=== PATIENT | female | born 1955 ===

== ENCOUNTER 2020-11-25 11:40 | Inpatient (IN) | payer SELFPAY ==
[~2020-11-25] VITALS: Ht 172.7 cm; Wt 90.3 kg
[2020-11-25 12:49] LABS: Hematocrit 38.2 % (33.0-51.0); Hemoglobin 12.8 g/dL (11.5-16.0); Mean Corpuscular HGB 32.1 pg (26.0-34.0); Mean Corpuscular HGB Conc 33.5 g/dL (31.5-36.5); Mean Corpuscular Volume 96 fL (80-100); Mean Platelet Volume 10.6 fL (9.1-12.4); Platelet Count 155 K/mm3 (150-400); RDW Coefficient Variation 13.6 % (11.7-14.2); RDW Standard Deviation 47.9 fL (35.1-46.3); Red Blood Cell Count 3.99 M/mm3 (3.80-5.20); White Blood Cell Count 6.86 K/mm3 (4.00-11.30)
[2020-11-25 13:04] LABS: Albumin, Blood 3.3 g/dL (3.4-5.0); Albumin/Globulin Ratio 0.8 (0.8-1.8); Bilirubin, Total 0.5 mg/dL (0.1-1.0); Bun/Creatinine Ratio 12.1 (12.0-20.0); Creatinine, Blood 1.16 mg/dL (0.40-1.00); Globulin, Blood 3.9 g/dL (2.2-4.0); Total Protein, Blood 7.2 g/dL (6.4-8.2)
[2020-11-25 13:13] LABS: BAND PERCENT MAN 32 % (0-8); BASOPHILS ABSOLUTE MAN 0.06 K/mm3 (0.00-0.23); BASOPHILS PERCENT MAN 1 % (0-2); EOSINOPHILS PERCENT MAN 0 % (0-6); LYMPHOCYTES ABSOLUTE MAN 0.61 K/mm3 (0.84-5.20); LYMPHOCYTES PERCENT MAN 9 % (21-46); MONOCYTES ABSOLUTE MAN 0.34 K/mm3 (0.16-1.47); MONOCYTES PERCENT MAN 5 % (4-13); NEUTROPHILS ABSOLUTE MAN 5.83 K/mm3 (1.96-9.15); SEG NEUTROPHILS PERCENT MAN 53 % (41-73); TOTAL CELLS COUNTED 100
[2020-11-25 13:18] LABS: Source, Urine Catheter
[2020-11-25 13:21] LABS: Appearance, Urine Clear (Clear); Bilirubin, Urine Neg (Neg); Blood, Urine 4+ (Neg); Color, Urine Yellow (P-Yellow); Glucose Qualitative, Urine Neg (Neg); Ketones, Urine Neg (Neg); Leukocyte Esterase, Urine 1+ (Neg); Nitrite, Urine Pos (Neg); Protein, Urine 3+ (Neg); Urobilinogen, Urine NORM (Normal)
[2020-11-25 13:44] LABS: U Amphetamine Screen DETECTED; U Barbituate Screen Not Detected; U Benzodiazapine Screen Not Detected; U Buprenorphine Screen Not Detected; U Cannabinoids Screen Not Detected; U Cocaine Screen Not Detected; U Methadone Screen Not Detected; U Methamphetamine Screen DETECTED; U Opiates Screen Not Detected; U Oxycodone Screen Not Detected; U Phencyclidine Screen Not Detected; U Propoxyphene Screen Not Detected
[2020-11-25 13:48] LABS: Bacteria Many /hpf; Squamous Epithelial Cells Few /hpf (Few)
--- NOTE | 2020-11-25 16:50 | NUR ---
RECIEVED REPORT FROM BALTA GARCIA RN. PATIENT TO TRANSPORT TO ROOM 329.
--- NOTE | 2020-11-25 17:44 | NUR ---
PATIENT ARRIVED TO THE FLOOR AT 1700. DENIES HAVING ANY OTHER MEDICAL CONDITIONS. VERY LETHARGIC AND OBTAINING ANY INFORMATION VIA PATIENT DIFFICULT AND UNRELIABLE. PATIENT STATES SHE DOES NOT USE RECREATIONAL DRUGS. WAS UNABLE TO GET O2 SATS ABOVE 90% VIA NC SO PLACED PATIENT ON OXYMIZER AND SHE SEEMS TO BE DOING WELL ON ONLY 2L O2. INCONT AT THIS TIME. H&P AND ADMISSION ASSESSMENT COMPLETED TO THE BEST OF MY ABILITY WITHOUT THE ASSISTANCE OF THE PATIENT.
--- NOTE | 2020-11-25 19:45 | NUR ---
ASSUMED CARE RECEIVED REPORT FROM DEANDRA DEL RIO. PT'S O2 SATS NOTED TO BE 87-88% ON 12L OXYMIZER. 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 PT UNWILLING TO PRONE SELF OR TO LAY ON SIDE, EXPLAINED TO PT RISKS VERSUS BENEFITS. 02 INCREASED TO 15L/OXYMIZER, O2 SATS CONTINUING TO RANGE FROM 84-87%. RT ALSO NOTIFIED OF PT'S CONDITION, PT PLACED ON NON-REBREATHER MASK, ON 15L IN ADDITION TO 15L/OXYMIZER. O2 SATS BETWEEN 88-90%. PT HYPOTENSIVE, AROUSES BRIEFLY TO VERBAL STIMULI, BUT QUICKLY FALLS BACK ASLEEP. WILL NOTIFY PROVIDER OF PT CONDITION. GUEST SERVICES REPRESENTATIVE ALSO NOTIFIED.
--- NOTE | 2020-11-25 20:40 | NUR ---
NOTIFIED DR. HENDRIX OF PT'S INCREASED O2 NEEDS, CURRENTLY ON 15L/OXYMIZER AND 15L/NON-REBREATHER MASK, O2 SATS MAINTAINING 84-87%. NOTIFIED THAT RT IS PLACING PT ON AIRVO. NO NEW ORDERS RECEIVED AT THIS TIME, WILL CONTINUE TO KEEP INFORMED OF PT CONDITION.
--- NOTE | 2020-11-25 20:50 | NUR ---
PT O2 SATS 84-86% ON 15L/OXYMIZER AND NRB MASK. RAPID RESPONSE WAS CALLED.
--- NOTE | 2020-11-25 21:30 | NUR ---
THIS RN SPOKE TO DR. HENDRIX REGARDING PT'S BP S/P 25OML BOLUS OF NS. ORDERS RECEIVED. CONTINUE TO MONITOR PT CONDITION AND NOTIFY PROVIDER OF CHANGES.
--- NOTE | 2020-11-25 21:50 | NUR ---
NOTIFIED DR. HENDRIX OF PT'S RECENT BP OF . ORDERS RECEIVED.
--- NOTE | 2020-11-25 21:50 | NUR ---
SPOKE TO DR. HENDRIX REGARDING PT'S CURRENT BP OF 84/51. ORDERS RECEIVED TO INFUSE 500ML BOLUS OF NS. NO OTHER ORDERS RECEIVED AT THIS TIME. CONTINUE TO MONITOR PT CONDITION.
--- NOTE | 2020-11-25 23:00 | NUR ---
THIS RN CALLED ON [facility] BY JESSICA PALM GATHERER. NOTIFIED OF ORDERS PER DR. HENDRIX TO TRANSFER PT TO PCU. AWAITING ROOM ASSIGNMENT.
--- NOTE | 2020-11-26 01:30 | NUR ---
REPORT CALLED TO BONGINVOICE CLERK. PT TRANSPORTED TO PCU VIA HOSPITAL BED, CURRENTLY ON BIPAP. ALL BELONGINGS SENT WITH PT.
[2020-11-26 04:26] LABS: Hematocrit 43.2 % (33.0-51.0); Mean Corpuscular HGB 32.1 pg (26.0-34.0); Mean Corpuscular HGB Conc 32.4 g/dL (31.5-36.5); Mean Corpuscular Volume 99 fL (80-100); Mean Platelet Volume 10.2 fL (9.1-12.4); Platelet Count 148 K/mm3 (150-400); RDW Coefficient Variation 13.6 % (11.7-14.2); Red Blood Cell Count 4.36 M/mm3 (3.80-5.20)
[2020-11-26 04:52] LABS: Alanine Aminotransfer (ALT/SGP 49 U/L (12-78); Albumin, Blood 2.7 g/dL (3.4-5.0); Albumin/Globulin Ratio 0.7 (0.8-1.8); Alk Phos 57 U/L (50-136); Anion Gap 8 mmol/L (6-16); Aspartate Aminotrans (AST/SGOT 103 U/L (12-37); Bilirubin, Total 0.5 mg/dL (0.1-1.0); Blood Urea Nitrogen 12 mg/dL (8-24); Bun/Creatinine Ratio 13.9 (12.0-20.0); CO2, Blood 20 mmol/L (21-32); Calcium, Blood 7.3 mg/dL (8.5-10.1); Chloride, Blood 108 mmol/L (98-108); Creatinine, Blood 0.86 mg/dL (0.40-1.00); Glomerular Filtration Rate >60 (60-); Glucose, Blood 135 mg/dL (70-99); Magnesium, Blood 2.2 mg/dL (1.6-2.4); Potassium, Blood 3.6 mmol/L (3.5-5.5); Sodium, Blood 136 mmol/L (136-145); Total Protein, Blood 6.7 g/dL (6.4-8.2)
[2020-11-26 05:59] LABS: BAND PERCENT MAN 30 % (0-8); BASOPHILS PERCENT MAN 0 % (0-2); EOSINOPHILS PERCENT MAN 0 % (0-6); LYMPHOCYTES ABSOLUTE MAN 0.98 K/mm3 (0.84-5.20); LYMPHOCYTES PERCENT MAN 7 % (21-46); METAMYELOCYTE ABSOLUTE MAN 0.14 K/mm3 (0.00-0.00); METAMYELOCYTE PERCENT MAN 1 % (0-0); MONOCYTES ABSOLUTE MAN 0.14 K/mm3 (0.16-1.47); MONOCYTES PERCENT MAN 1 % (4-13); NEUTROPHILS ABSOLUTE MAN 12.74 K/mm3 (1.96-9.15); SEG NEUTROPHILS PERCENT MAN 61 % (41-73); TOTAL CELLS COUNTED 100
--- NOTE | 2020-11-26 06:30 | NUR ---
shift summary pt rested most of night after being transferred from medical. alert, not oriented. pt is anxious at times, but maintains good sats on bipap - 14/7 100% fio2. tele nsr/sinus tach. bedrest, incontinent at times. no pain. vss. call light within reach, bed in lowest position. will continue to monitor.
--- NOTE | 2020-11-26 18:04 | NUR ---
SHIFT SUMMARY: PT A&OX3, AGITATED AT TIMES AND TALKS ABOUT HER RT FOREARM HURTING, STATING "IT IS FROM [facility]" AND REQUESTING A SOCK TO PROVIDE COMPRESSION. PT CONTINUES TACHYPNEIC, MAINTAINING O2 SATS ON BIPAP CURRENTLY SET TO 90% 05/11. SR CONTINUES ON MONITOR. REMDESIVIR INFUSION COMPLETED WITHOUT DIFFICULTY. PT TO AND FROM CT FOR PE STUDY. PT PROVIDED WITH BEDBATH, ATTENDS IN PLACE AND CHANGED NEEDED. PT PROVIDED WITH ORAL CARE AND REPOSITIONED NEEDED. WILL CONTINUE TO MONITOR AND TREAT ACCORDINGLY UNTIL CHANGE OF SHIFT.
--- NOTE | 2020-11-26 21:29 | NUR ---
CALLED DR. REES REGARDING PATIENT PULLING BIPAP OFF REPEATEDLY; ABOUT 3 TIMES IN A TWENTY MINUTE WINDOW; PATIENT REPORTS SHE CANNOT BREATHE; NO NEW ORDERS AT THIS TIME. WILL ATTEPT TO PLACE PATIENT ON HIGH FLOW NASAL CANNULA.
--- NOTE | 2020-11-26 21:45 | NUR ---
ASSUMED CARE OF PATIENT AT APPROXIMATELY 1900 FROM JE Mcnally RN. PATIENT ANXIOUS, IRRITABLE AND PULLING OFF BIPAP MULTIPLE TIMES; YELLING AT STAFF MEMBERS. PATIENT ANXIOUS ABOUT BIPAP; PULLS OFF AND REPORTS "I CANT BREATHE"; PATIENT DENIES PAIN, NUMBNESS, TINGLING, DIZZINESS OR NAUSEA. SR ON TELE; OXYGEN SATURATION ABOVE 90% ON BIPAP 14/8 90% FIO2. PIV S/L.
[2020-11-27 04:15] LABS: Hematocrit 43.6 % (33.0-51.0); Hemoglobin 14.3 g/dL (11.5-16.0); Mean Corpuscular HGB Conc 32.8 g/dL (31.5-36.5); Mean Corpuscular Volume 98 fL (80-100); Mean Platelet Volume 10.2 fL (9.1-12.4); Platelet Count 175 K/mm3 (150-400); RDW Coefficient Variation 13.6 % (11.7-14.2); RDW Standard Deviation 49.5 fL (35.1-46.3); Red Blood Cell Count 4.47 M/mm3 (3.80-5.20); White Blood Cell Count 10.67 K/mm3 (4.00-11.30)
[2020-11-27 04:37] LABS: Anion Gap 9 mmol/L (6-16); Blood Urea Nitrogen 13 mg/dL (8-24); Bun/Creatinine Ratio 18.2 (12.0-20.0); CO2, Blood 22 mmol/L (21-32); Calcium, Blood 7.9 mg/dL (8.5-10.1); Chloride, Blood 107 mmol/L (98-108); Creatinine, Blood 0.72 mg/dL (0.40-1.00); Glomerular Filtration Rate >60 (60-); Glucose, Blood 103 mg/dL (70-99); Potassium, Blood 4.6 mmol/L (3.5-5.5); Sodium, Blood 138 mmol/L (136-145)
--- NOTE | 2020-11-27 05:20 | NUR ---
PATIENT PULLED BIPAP OFF AND REPORTS SHE CANNOT BREATHE AND WOULD LIKE A BREAK; AT LEAST FOR A MINUTE; ATIVAN GIVEN PER ORDER THAT WAS PREVIOUSLY HELPING BUT SEEMS TO HAVE NOT EFFECT NOW. PATIENT OXYGEN SATURATION DROPPED TO 79 PERCENT. PATIENT STATES SHE IS READY TO GO HOME.
--- NOTE | 2020-11-27 05:32 | NUR ---
DR. REES CALLED BY LICENSED PSYCHIATRIC TECHNICIAN DAN DUE TO PATIENT CONTINUOUSLY PULLING BIPAP OFF; PLACED ON HUMIDIFIED HF NC AND PATIENT STILL PULLING OFF OXYGEN STATING SHE JUST WANTS A BREAK FOR A FEW MINUTES EVEN AFTER BEING EDUCATED REPEATEDLY ABOUT DESATING.
--- NOTE | 2020-11-27 06:01 | NUR ---
DR. REES BEDSIDE; ORDERS RECIEVED; PATIENT IN SOFT BILATERAL WRIST RESTRAINTS WHILE ON HUMIDIFIED HIGH FLOW NC; 500 CC NS AT 100ML/HR; STAT CHEST XRAY; AND LABS.
--- NOTE | 2020-11-27 06:33 | NUR ---
DR. REES CALLED TO STATE CHEST X-RAY LOOKS WORSE AND DR. AU CAN INTERPRET LATER. NO NEW ORDERS; UPDATED THAT PATIENT IS VERY AGITATED AND PULLING ON OXYGEN.
--- NOTE | 2020-11-27 18:48 | NUR ---
PT IN BILATERAL SOFT WRIST RESTRAINTS FROM 0700 TO 1533; PT GIVEN ORAL CARE Q4H; PT TITRATED DOWN TO 50L AND 50% ON HIGH FLOW NC; PT WAS INCONTINENT OF URINE SEVERAL TIMES; PT VERY LETHARGIC AND PASSES THE BEDSIDE SWALLOW SCREEN, AOX1; AIRBORNE ISOLATION PRECAUTIONS OBSERVED; PT REFUSED HENNESSY CATHETER INSERTION WHEN GIVEN THE OPTION; PT TOLERATED PO WHOLE PILLS SUCCESSFULLY; ARMBOARD PLACED TO FACILITATE IV ABX INFUSION; PT DENIES ADDITIONAL CONCERNS AT THIS TIME
--- NOTE | 2020-11-27 21:45 | NUR ---
ASSUMED CARE OF PATIENT AT APPROXIMATELY 1900 FROM DANIELLE Verma RN. PATIENT LETHARGIC; WAKES TO VERBAL STIMULUS; DOESNT WANT TO BE CHANGED WHEN INCONTINENT OF URINE; REFUSING CATHEHTER; CONFUSED. PATIENT DOESNT HAVE MUCH OF AN APPETITE BUT REPORTS SHE THRISTY; INCONTINENT OF LARGE AMOUNTS OF URINE. PATIENT DENIES PAIN, NUMBNESS, TINGLING, DIZZINESS OR NAUSEA. SR ON TELE; OXYGEN SATURATION ABOVE 90% ON HUMIDIFIED HF NC 50% FIO2; 50 LPM. PIV S/L.
[2020-11-28 05:06] LABS: Anion Gap 5 mmol/L (6-16); Blood Urea Nitrogen 16 mg/dL (8-24); Bun/Creatinine Ratio 23.8 (12.0-20.0); CO2, Blood 27 mmol/L (21-32); Chloride, Blood 104 mmol/L (98-108); Creatinine, Blood 0.67 mg/dL (0.40-1.00); Glomerular Filtration Rate >60 (60-); Glucose, Blood 165 mg/dL (70-99); Potassium, Blood 3.4 mmol/L (3.5-5.5); Sodium, Blood 136 mmol/L (136-145)
--- NOTE | 2020-11-28 06:29 | NUR ---
PATIENT SLEPT ABOUT EIGHT HOURS. PATIENT CALLED AND REPORTED SHE WANTS HER ROOMMATE AND SERVICE DOG IN
--- NOTE | 2020-11-28 13:56 | NUR ---
pt has pulled laboratory monitor, clothing, and IV completely off. Blood all over thept's arms, torso and chux pad, probably about 20 cc. Bilateral soft wrist restraints applied after order received from Dr. Noyola to prevent harm to self (pt has also demonstrated confusion and ability to remove airvo oxygen delivery), as well as to protect lines/tubes in use for pt care , treatment and safety.
--- NOTE | 2020-11-28 17:40 | NUR ---
PT ARRIVAL... PT ARRIVED ON UNIT VIA GURNEY FROM PCU. PT WAS PULLED FROM THE PCU BED TO THE ICU BED BY 4 STAFF. PT WAS AGITATED BY MOVING AND ATTEMPTED TO PULL ON HER IV LINES AND PULL THE AIRVO OFF. PT WAS RESTRAINED AND IV PRECEDEX WAS STARTED, PT'S VS STABLE AT THE TIME OF TRANSFER. L/S CLEAR AND DIM T/O. BT PRESENT AND VERY HYPOACTIVE, ABD IS SOFT AND NONTENDER TO PALP. NO EDEMA NOTED ON ASSESSMENT. PT WAS UNABLE TO FOLLOW DIRECTIONS OR OPEN HER EYES TO COMMAND BUT WAS ABLE TO STATE HER NAME AND . THE PRECEDEX WAS TITRATED UP FROM 0.4MCG TO 0.7MCG WITH THE PT'S VS BEING STABLE. WILL CONTINUE TO MONITOR.
--- NOTE | 2020-11-28 17:48 | NUR ---
SHIFT SUMMARY PT EXPERIENCED A LOT OF ANXIETY AND AGITATION THIS SHIFT. PT CONFUSED AND VERY UPSET THAT SHE IS FROM HER SERVICE DOG. PULLING AT 02 AND PULLED OUT HER IV. UNABLE TO BE CONSOLED AND DID NOT RESPOND WELL TO ANXIETY MEDICATION. PT ENDED UP RESTRAINED AND WAS GETTING OUT OF HER RESTRAINTS AND STILL PULLING ON HER O2. PT DROPS INTO THE LOW 80'S ON ROOM AIR. RESTRAINTS REPOSITIONED IN ORDER TO KEEP PATIENT FROM REMOVING THEM. PT TRANSFERRED TO ICU IN ORDER TO RECEIVE ADDITONAL SEDATION. REPORT CALLED TO ICU NURSE, PT BELONGINGS GATHERED, AND PT TRANSFERRED TO ICU.
--- NOTE | 2020-11-28 19:56 | NUR ---
SHIFT SUMMARY... AT APROX 1850 IT WAS NOTED THAT THE PT'S BP HAS DROPPED TO THE 70'S/40'S WITH MAPS IN THE 50'S. THIS RN ENTERED THE ROOM AND STOPPED THE PRECEDEX, REPORT WAS GIVEN AT THE BEDSIDE WITH ONCOMING RN, DR. GANDHI WAS CALLED AND AN ORDER FOR LEVOPHED WAS OBTAINED, ALSO AN ORDER TO RUN THE LEVOPHED IN A PERIPHREAL IV UNTIL A LINE COULD BE STARTED. PLAN IS TO USE THE LEVOPHED WHILE THE PT NEEDS THE PRECEDEX DRIP. REPORT GIVEN TO ONCOMING RN AT THE BEDSIDE.
--- NOTE | 2020-11-28 19:59 | NUR ---
ASSUMED CARE REPORT RECEIVED FROM INES LIRIANO. PT RESTING IN BED, PRECEDEX WAS INFUSING AT 0.7 MCG/KG/HR HAD TO PUT ON STANDBY DUE TO LOW BP. NEW ORDER RECEIVED FOR LEVOPHED, OK'D TO RUN THROUGH PIV UP TO 8 MCG/MIN. WITH PRECEDEX ON STANDBY, PT ABLE TO FOLLOW COMMANDS, DID NOT ANSWER ANY ORIENTATION QUESTIONS. AIRVO ON 50L/50% SPO2 >90%. PT DECLINED REQUEST TO INSERT HENNESSY, ATTENDS IN PLACE AT THIS TIME. PT STATES SHE IS HAVING BACK PAIN, REPOSITIONED WITH PILLOWS. PRECEDEX RESTARTED AT 2000 AT 0.5 MCG/KG/HR AND LEVO STARTED AT 4 MCG/MIN. HR 50-60'S SR ON MONITOR, SBP WITH MAP >65, SPO2 95%. NEW ORDER PLACED FOR PICC LINE, CURRENTLY HAS ONE PIV TO RUE.
--- NOTE | 2020-11-28 21:00 | NUR ---
NEW VERBAL ORDER FROM DR ALMAZAN TO GIVE 1L NS BOLUS WIDE OPEN AND PLACE LEVOPHED ON STANDBY DUE TO NOT HAVING CENTRAL LINE AT THIS TIME.
--- NOTE | 2020-11-28 22:00 | NUR ---
NEW PIV INSERT TO LUE. LEVOPHED RESTARTED AT 4 MCG/MIN TO MAINTAIN MAP >65.
[2020-11-29 03:41] LABS: Anion Gap 6 mmol/L (6-16); Blood Urea Nitrogen 20 mg/dL (8-24); Bun/Creatinine Ratio 27.7 (12.0-20.0); CO2, Blood 26 mmol/L (21-32); Calcium, Blood 7.4 mg/dL (8.5-10.1); Chloride, Blood 106 mmol/L (98-108); Creatinine, Blood 0.72 mg/dL (0.40-1.00); Glomerular Filtration Rate >60 (60-); Glucose, Blood 243 mg/dL (70-99); Potassium, Blood 3.3 mmol/L (3.5-5.5); Sodium, Blood 138 mmol/L (136-145)
--- NOTE | 2020-11-29 06:33 | NUR ---
SHIFT SUMMARY PT RESTING IN BED, PRECEDEX INFUSING AT 0.7 MCG/KG AND LEVOPHED AT 2 MCG/MIN. PT OCCASIONALLY YELLS OUT "HELP ME" EASILY REDIRECTED WHEN REMINDED SHE IS IN HOSPITAL. HELPS WITH TURNING FOR ATTENDS CHANGES. ORIENTED TO SELF ONLY, WILL FOLLOW COMMANDS. AIRVO ON T/O SHIFT, 50L 55% WITH SPO2 92%. BILATERAL SOFT WRIST RESTRAINTS REMAIN IN PLACE TO PREVENT PULLING OF LINES/AIRVO. LUNG DIMINISHED T/O, PT WITH OCCASIONAL NONPRODUCTIVE COUGH.
--- NOTE | 2020-11-29 07:45 | NUR ---
Received report from Ginger LIRIANO. Patient resting with precedex as sedation. She is on AirVo 50L 55% and sats low 90% unless moving drops into mid to high 80 and recovers well. Oral care done as she coughs up thick yellow flem. gave complete bed bath and linen change. Changed attends. She moans and occassionally opens eye, but does not follow commands or track. She has bilateral 20ga IV's in upper arms. Right 20ga IV infusingPrecedex at 0.7 mcg/kg/hr, Levophed at 2 mcg/min, and NS TKO. The left 20ga IV flushed and SL'd.
--- NOTE | 2020-11-29 11:00 | NUR ---
Patient continues to rest. No changes to Lebvophed or Precedex. She remains on AirVo 50L 50% and sats 94%. She awakened long enough to take PO med with sips of water.
--- NOTE | 2020-11-29 13:30 | NUR ---
Patient has belen awakening and yelling out for water. She tolerates sips. She is still very confused and is un able to follow conversation clearly and only follow simple commands occassionally. VSS. She remains on 50L 50% via AirVo and sats sats >90%. She is able to MAEW but weak. Placed her on bedpan without success, she still refuses wilson. Precedex remains at 0.7 mcg/kg/hr and NS TKO and Levophed at 2 mcg/min
--- NOTE | 2020-11-29 15:30 | NUR ---
Patient resting off and on and remains waking up and yelling for water. She remains comfused and only able to to simple command. She is still in bilateral soft wrist and when letting her out for brief periods , she immediately pulls and nasal adjunct. VSS, sats 96%.
--- NOTE | 2020-11-29 18:27 | NUR ---
Patoient incontinent to urine and 700 mls in. High Flow remains at 50L 55% sats >90%. Levophed SB and Precedex 0.7 mcg/kg/hr, NS TKO. Patient remains confused with a little comunication and follows very simple commands. VSS, SEE EMR. MAEW but weak. Linen changed.
--- NOTE | 2020-11-29 20:00 | NUR ---
REPORT RECEIVED-CARE ASSUMED. GTTS, VITALS & ASSESSMENT NOTED IN FLOWSHEET.
--- NOTE | 2020-11-29 23:40 | NUR ---
assess pt yelling out, "golf course!' OVER AND OVER AGAIN. ATTEMPT TO REOREINTATE PT. PT STATES SHE DOES NOT UNDERSTAND.PT WITH FEET OVERSIDE OF BED-LAYING SIDEWAYS WITH RESTRAINTS ON- REPOSITION PT. CONTINUE ON PRECEDEX GTT-NO CHANGE IN RATE.CONTINUE HIGH FLOW O2 WITH NO SETTING CHANGES- 55% @ 50 FLOW. CONTINUE ASSESSMENTS AND CARE.
[2020-11-30 03:52] LABS: Anion Gap 7 mmol/L (6-16); Blood Urea Nitrogen 25 mg/dL (8-24); CO2, Blood 23 mmol/L (21-32); Calcium, Blood 7.8 mg/dL (8.5-10.1); Chloride, Blood 108 mmol/L (98-108); Creatinine, Blood 0.74 mg/dL (0.40-1.00); Glomerular Filtration Rate >60 (60-); Glucose, Blood 213 mg/dL (70-99); Potassium, Blood 3.8 mmol/L (3.5-5.5); Sodium, Blood 138 mmol/L (136-145)
--- NOTE | 2020-11-30 06:03 | NUR ---
END OF SHIFT NOTE PT REMAINS ON PRECEDEX 0.7, LEVO @ 2 - SEE FLOWSHEET VITALS. HR SB OVERNIGHT 45-55. NO CHANGE IN RESPIRATORY-55% ON 50 L, PT DECREASED SATS WITH TURNS AND ACTIVITY. ATTENDS IN PLACE, PT INCONTINENT OF URINE OVERNIGHT, NO BM. PT RESTED OFF AND ON, AT TIMES YELLING OUT, RANDOM THINGS AND REMAINS CONFUSED. PT IS ABLE TO DRINK FLUIDS WHEN AWAKE. CONTINUE ASSESSMENT AND CARE TILL REPORT OFF TO DAYSHIFT RN.
--- NOTE | 2020-11-30 07:39 | NUR ---
Received report from Angeles LIRIANO. Patient is resting in bed and awakens for care with an occassional yelling out for water. She is on High Flow at 50ml 55% and sats 96%. She has attends in place for incontinence of urine and no stool in several days. MAEw but weak. She has bilateeral 20 ga IV's in uuper arms. 20ga IV in right arm is flushed and SL'd and the left arm 20ga is infusing precedex 0.7 mcg/kg/hr, NS TKO, Levophed at 2 mcg/min. She is in bilateral soft wrist restraints for her pulling at lines and O2.
--- NOTE | 2020-11-30 09:30 | NUR ---
Decreaed Precedex to 0.3 mcg/kg/hr. She continues to scream out and states she remembers nothing you stated 5 minuytes before. Gave bath and she had small stool brown and soft. Levophed at 2 mcg/min and systolic low 100's. high flow at 50L 55% and sats mid to high 90%. Moves all extremities. Got her up to chair with 1 person assist for stabilization.
--- NOTE | 2020-11-30 11:30 | NUR ---
She remains up in chair. She had another medium soft stool, changed linen abd cleaned her up. VSS. Reduced high flow to 50L 45% and sats still >95%. No real changes in neuro, constantly yelling out and does not know why when asked.
--- NOTE | 2020-11-30 13:30 | NUR ---
Remains up in chair. Had third stool and large loose brown, in attends. VSS, SeeEmr. Reduced high flow to 40L 40% and sats still >95%. placed Precedex on standby.
--- NOTE | 2020-11-30 15:30 | NUR ---
Place all IV's on standby and placed her on 6L via NC and sats remains >95%. She was put back in bed after another loose stool. Transferred well with 1 full assist.
--- NOTE | 2020-11-30 17:21 | NUR ---
Trialing patient on RA and sats 90-94%. She tolerated small amount of dinner. VSS, See EMR. She is now medical status and possible DC 1-2 days. MAEW just a little unstable with ambulation and could benifet from PT/OT.
--- NOTE | 2020-11-30 19:00 | NUR ---
REPORT RECEIVED-CARE ASSUMED. NO GTTS, ON RA. CONFUSED-YELLING OUT. ATTENDS IN PLACE. FULL ASSESSMENT - SEE FLOWSHEET. CONTINUE ASSESSMENTS AND CARE.
--- NOTE | 2020-11-30 21:29 | NUR ---
PT ASKING TO CALL MOM-ABLE TO GIVE NUMBER-DIALED AND PT TALKED ON PHONE WITH HER. PT ON RA-ABLE TO HELP TURN IN BED. CONTINUE CARE.
--- NOTE | 2020-12-01 00:10 | NUR ---
ASSESS PT MED/SURG NO TELE. VOIDING-LARGE AMTS-INCONTINENCE. YELLING OUT WHEN YOUR NOT IN THE ROOM. PT REAGAN LOZANO SHE IS AT [facility], ANSWERS QUESTION. PT ABLE TO EAT AND DRINK. REMAINS OF RA, RR 18-22, BS: CLEAR/DECREASED. CONTINUE ASSESSMENTS AND CARE.
--- NOTE | 2020-12-01 05:55 | NUR ---
END OF SHIFT NOTE PT REMAINS ON RA, VITALS STABLE OVERNIGHT-SEE FLOWSHEET. PT A&O, CONTINUES TO YELL OUT. PT CALLED HER MOM LAST NIGHT AND CHATED ON PHONE. PT ABLE TO EAT AND DRINK. VOIDING-LARGE AMOUNTS-INCONTINENCE. CONTINUE ASSESSMENTS AND CARE TILL REPORT OFF TO ONCOMING SHIFT RN.
--- NOTE | 2020-12-01 08:57 | NUR ---
CARE OF PT ASSUMED AT 0700. PT YELLS OUT " I WANNA GO HOME, CAN I GO HOME". PT ABLE TO FEED HERSELF BREAKFAST. PT KNOWS SHE IS AT [facility] AND THAT THE YEAR IS 2020. PT STATES SHE IS IN THE HOSPITAL FOR COVID. PT ABLE TO FOLLOW DIRECTIONS. PT WITH CHILD LIKE CONVERSATION. PT WITH SIMPLE SPEECH, HIGH PITCHED AT TIMES, POOR UNDERSTANDING. PT MIN ASSIST TO CHAIR W WALKER, PT WEAK. VSS. PT HAS NON-PRODUCTIVE COUGH. SATS 90-91% ON RA. PT DOES HAVE FINE FAINT CRACKLES TO BASES. PT TORE OFF DNR BAND THIS AM STATING SHE DID NOT WANT TO . WILL DISCUSS WITH .
--- NOTE | 2020-12-01 10:31 | NUR ---
DR LOPEZ IN TO SEE PT. FULL REPORT GIVEN. PT/OT TO BE ORDERED.
--- NOTE | 2020-12-01 13:38 | NUR ---
PT COMPLAINING OF RIGHT HAND PAIN (CHRONIC FROM OLD INJURY/SURGERY) 02/01. PT GIVEN TYLENOL. PT STATES TYLENOL DOESNT WORK. PHYSICAL THERAPY WORKED W PT THIS AFTERNOON AND FOUND THE PT TO BE WEAK AND NOT READY FOR DISCHARGE. PT CONTINUES TO REQUEST TO BE DISCHARGED HOME. ALTHOUGH PT IS ORIENTED TO SELF AND PLACE PT IS STILL EXIBITING SOME COGNITIVE DEFICITS. PT HAS POOR JUDGEMENT, POOR INSIGHT, POOR MEMORY. PT CALLS OUT REPEATIVELY "HELP" OR "I WANT TO GO HOME", OR A PHONE NUMBER. PT OCCASSIONALLY USES THE CALL LIGHT APPROPRIATELY.
[2020-12-01] MEDS ORDERED: CEFD300 PO (15:19)
[2020-12-01] MEDS ORDERED: DEXA2 PO (15:20)
[2020-12-01] MEDS ORDERED: VITAMIN D5000 UNIT PO (15:21)
--- NOTE | 2020-12-01 15:30 | NUR ---
PT IS TO BE DISCHARGED WITH HOME HEALTH. S/O/ROOMATE CONTACTED AND IS HAPPY TO HAVE HER HOME TODAY. [facility] WILL PROVIDE A RIDE. PRESCRIPTIONS FAXED TO [facility] PER PT REQUEST.
--- NOTE | 2020-12-01 18:15 | NUR ---
PT DISCHARGED HOME. AMBULANCE HERE TO TAKE PT HOME. RX CALLED INTO [facility]. DISCHARGE MEDS AND INSTRUCTIONS GIVEN TO PT. 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 PT LEFT DENTURES IN ROOM, MESSAGE LEFT W MEG;S/O. DENTURES LABELED AND PLACED IN BAG W LABEL. BAG PLACED IN LOCKED CABINET IN SOIL HOLD ROOM.
== END 2020-12-01 18:10 | disposition home health service (06) | DRG 871 ==
LOC: ER 11:40 → MEDS 15:10 → PCU 15:10 → MEDS 16:56 → PCU 11-26 00:57 → ICUW 11-28 17:49
PROVIDERS: Emergency Medicine; Internal Medicine; Nurse Practitioner Acute Care; Student in an Organized Health Care Education/Training Program; ADMIT Internal Medicine
PROC: 8E0ZXY6 Isolation (ICD-10-PCS; principal; 2020-11-25)
PROC: XW033E5 Introduction of Remdesivir Anti-infective into Peripheral Vein, Percutaneous Approach, New Technology Group 5 (ICD-10-PCS; 2020-11-25)
PROC: 5A09357 Assistance with Respiratory Ventilation, Less than 24 Consecutive Hours, Continuous Positive Airway Pressure (ICD-10-PCS; 2020-11-25)
PROC: 3E0D73Z Introduction of Anti-inflammatory into Mouth and Pharynx, Via Natural or Artificial Opening (ICD-10-PCS; 2020-11-25)
PROC: 5A0945A Assistance with Respiratory Ventilation, 24-96 Consecutive Hours, High Flow/Velocity Cannula (ICD-10-PCS; 2020-11-27)
PROC: 3E033XZ Introduction of Vasopressor into Peripheral Vein, Percutaneous Approach (ICD-10-PCS; 2020-11-28)
DX: A41.89 Other specified sepsis (principal); U07.1 COVID-19; J12.82 Pneumonia due to coronavirus disease 2019; J96.01 Acute respiratory failure with hypoxia; G92 Toxic encephalopathy; N39.0 Urinary tract infection, site not specified; N17.9 Acute kidney failure, unspecified; F15.13 Other stimulant abuse with withdrawal; F17.210 Nicotine dependence, cigarettes, uncomplicated; E87.6 Hypokalemia; Z66 Do not resuscitate; B96.20 Unspecified Escherichia coli [E. coli] as the cause of diseases classified elsewhere; E86.0 Dehydration; G89.29 Other chronic pain; Z71.51 Drug abuse counseling and surveillance of drug abuser
CPT/HCPCS: 36415; 51701; 71045; 71260; 80048; 80053; 81001; 83605; 83735; 84145; 85025; 85027; 85379; 87077; 87086; 87186; 93005; 93010; 94660; 94762; 96374; 97162; 97530; 99285-25; A9270; J0696; J1630; J1650; J1940; J2060; J3480; J7030; J7040; J7050; J7060; Q9967